=== PATIENT | male | born 1960 | race Caucasian/White ===

== ENCOUNTER 2022-10-14 00:22 | Outpatient (CLI) | payer OTHER, BC, SELFPAY ==
--- NOTE | 2022-10-14 09:19 | DI.RAD_ITS ---
Exam(s) XR SHOULDER RT COMPLETE 2+V EXAM: XR SHOULDER RT COMPLETE 2+V CLINICAL HISTORY: rt shoulder pain,M25.519. TECHNIQUE: 2D digital imaging was performed. COMPARISON: No exams were available for comparison FINDINGS: Five views No evidence of fracture or dislocation or abnormal soft tissue calcifications. There is mild diminut ion of the subacromial space. No obvious degenerative changes in the glenohumeral joint. Mild degen erative changes AC joint. Bone density normal. No osseous lesions. Ipsilateral clavicle unremarkab le. IMPRESSION: No acute osseous findings. As above. DATA REPOSITORY: RADIATION DOSE DELIVERED:
== END 2022-10-14 00:42 ==
PROVIDERS: PCP Family Medicine; Visit Provider Family Medicine
DX: M25.511 Pain in right shoulder (principal)
CPT/HCPCS: 73030

== ENCOUNTER 2022-11-02 07:57 | Outpatient (REF) | payer BC, SELFPAY ==
[2022-11-02 08:44] LABS: Lab Add On Test DONE
[2022-11-02 09:11] LABS: ALT 44 U/L (16-63); AST 25 U/L (15-37); Albumin 3.8 g/dL (3.4-5.0); Alkaline Phosphatase 74 U/L (46-116); Anion Gap 9.7 mmol/L (3-11); BUN 12 mg/dL (7-18); Bilirubin, Total 0.5 mg/dL (0.2-1.0); CO2 27.3 mmol/L (21.0-32.0); CREATININE 0.8 mg/dL (0.70-1.30); Calculated LDL 115 mg/dL (<100); Chloride 101 mmol/L (98-107); Cholesterol 246 mg/dL (<200); Estimated GFR 100.69 (mL/min/1.73m2); Glucose 92 mg/dL (74-106); HDL Cholesterol 70 mg/dL (40-60); Potassium 4.2 mmol/L (3.5-5.1); Sodium 138 mmol/L (136-145); Total Protein 8.3 g/dL (6.4-8.2); Triglyceride 307 mg/dL (<150)
[2022-11-02 18:26] LABS: PSA, Screening 2.7 ng/mL (<=4.5)
== END 2022-11-02 07:58 | disposition home or self-care (01) ==
LOC: LBN 07:57
PROVIDERS: PCP Family Medicine; Visit Provider Nurse Practitioner Gerontology
DX: E29.1 Testicular hypofunction (principal); N52.9 Male erectile dysfunction, unspecified; R39.9 Unspecified symptoms and signs involving the genitourinary system; Z13.220 Encounter for screening for lipoid disorders; R10.9 Unspecified abdominal pain
CPT/HCPCS: 80053; 80061; 84153